=== PATIENT | female | born 1955 | race Caucasian/White ===

== ENCOUNTER 2016-06-04 23:59 | Emergency (ER) | payer OTHER ==
--- NOTE | ~2016-06-04 | CT2 ---
[facility] A Service of [facility] RADIOLOGY TEXT RESULTS PATIENT: SEVERO YOUSIF LOCATION: [facility] : 59 UNIT #: [id number] AGE: [address]: Rojelio Garcia MD SEX: F ORDER DR: [id number] [facility] [address] [place], [place] [address] [id number] MR#: [id number] #: [id number] NAME: SEVERO YOUSIF : 1955 SEX: F STUDY DATE/TIME: 06/05/2016 3:30 UNIT: [facility] ROOM: STUDY DESCRIPTION: CT Abd and Pelv W Cont Attending Physician: Rojelio Garcia M.D. Ordering Physician: Rojelio Garcia M.D. Primary Care Physician: No Primary Care Physician MEDICAL IMAGING REPORT This report is preliminary unless electronic signature is present EXAM Abdomen and pelvis CT with contrast, 06/05/2016. INDICATION Abdominal pain for the past 2 months. Swelling for 2 months, trouble passing bowel movements, bloating. History of hysterectomy. TECHNIQUE Contrast enhanced CT of the abdomen and pelvis was performed. This CT exam was performed with one or more of the following radiation dose reduction techniques: automatic exposure control, adjustment of mA and/or kV according to patient size, and iterative reconstruction. COMPARISON 01/31/[address] ABDOMEN: Included lung bases are clear. There is no effusion or pericardial effusion. Aorta unremarkable. Spleen, adrenal glands, pancreas, and gallbladder unremarkable. Small cyst in the left hepatic lobe unchanged. Kidneys are unremarkable. CT PELVIS: Bladder unremarkable. Uterus surgically absent. No drainable fluid collection in the pelvis. There is intermittent diverticulosis of the colon. There is constipation. No bowel obstruction or focal inflammatory change of the bowel. Appendix normal. Inguinal canals unremarkable. Small reactive-appearing pelvic sidewall node on the left unchanged. Prominent vessels adjacent to the gastric fundus stable. There are degenerative changes in the thoracolumbar spine. IMPRESSION [facility] A Service of [facility] RADIOLOGY TEXT RESULTS PATIENT: SEVERO YOUSIF LOCATION: [facility] : 59 UNIT #: [id number] AGE: [address]: Rojelio Garcia MD SEX: F ORDER DR: 1. Negative contrast-enhanced abdomen and pelvis CT. The appendix is normal. No bowel obstruction, drainable fluid collection, or focal area of inflammatory change. 2. Uterus surgically absent. 3. Intermittent diverticulosis. 4. Not mentioned above, the spleen is enlarged. This was also present on the prior study. Dictated by... Edward Bethea M.D. THIS IS AN ELECTRONICALLY VERIFIED REPORT Edward Bethea M.D. at 06/05/2016 10:12 PM SANJAY/huey TD: 06/05/2016 15:10 JOB #: [id number] MEDICAL IMAGING REPORT Page 1 of 1 COPY
[~2016-06-04 23:59] MED LIST: ALB/IPRATROPIUM/1 E2 INH; ALL DAY ALLERGY10 M2; ALL DAY ALLERGY10 MG PO; AMITRIPTYLINE H50 MG PO; AMITRIPTYLINE100 MG; AMITRIPTYLINE100 MG PO; AMLODIPINE BESYL5 MG PO; ANTIVERT PO; ANUCORT-HC25 MG/SUPP; ANUCORT-HC25 MG/SUPP PR; ANUSOL-HC25 MG/SUPP PR; ASACOL400 MG; ASACOL400 MG PO; ATORVASTATIN CA20 MG PO; AZATHIOPRINE50 M1 PO; BACLOFEN10 MG; BACLOFEN10 MG PO; BENTYL20 MG DOB; CALCIUM CARBON600 M1 PO; CATAFLAM50 MG PO; CELEBREX PO; CETIRIZINE HCL10 MG PO; CIPRO PO; CITALOPRAM HBR40 MG PO; CLINDAMYCIN HC300 MG; COLACE50 MG PO; DITROPAN5 MG PO; DOC-Q-LACE100 MG; DOC-Q-LACE100 MG PO; DOXYCYCLINE HY100 M1 PO; EFFEXOR37.5 MG PO; ERGOCALCIF50000 UNI1 PO; ESTRADIOL0.5 MG PO; EUCERIN CREAM TOP; FLAGYL PO; FLEXERIL10 M1 PO; FLEXERIL10 MG; FLEXERIL10 MG PO; FLONASE 0.05% N16 G1; FLONASE16 GM; FLUTICASONE NASAL; FUROSEMIDE40 MG PO; GABAPENTIN300 M2 PO; GLIPIZIDE5 MG/BOTTL PO; GLYBURIDE2.5 M1 PO; HYDROXYZINE HCL25 M1 PO; INDOMETHACIN50 MG; INDOMETHACIN50 MG PO; KEFLEX500 MG PO; KLONOPIN0.5 MG PO; KLOR-CON PO; LASIX PO; LASIX20 MG; LASIX20 MG PO; LEVSIN; LEVSIN PO; LIALDA1.2 G PO; LIORESAL10 MG PO; LIPITOR PO; LIPITOR20 MG PO; LIPITOR40 MG PO; LISINOPRIL10 MG PO; LOMOTIL TABLET1 TAB PO; LOMOTIL WHITE2.5 MG DOB; LORTAB 7.5-5001 TAB PO; MACROBID100 MG PO; MECLIZINE HCL25 M1 PO; MEDI-MECLIZINE25 M1 PO; METFORMIN HCL500 M1; METFORMIN PO; METOCLOPRAMIDE H5 MG PO; MICRO-K10 MEQ PO; MOBIC15 MG PO; MOTION SICKNESS25 M4; MOTION SICKNESS25 M4 PO; NADOLOL20 MG PO; NAPROXEN375 MG PO; NITROGLYGERIN0.4 MG SL; NIZORAL 2% CREA15 GM EXT; NORTRIPTYLINE H50 MG PO; NOVOLOG; OMEPRAZOLE20 M1 PO; OMEPRAZOLE20 M2 PO; OPTIVE EYE DROPS5 ML OP; PAIN RELIEVER500 M4 PO; PANTOPRAZOLE SO40 MG PO; PAROXETINE HCL40 M1; PAROXETINE HCL40 M1 PO; PAROXETINE HCL40 MG PO; PERCOCET 5-3251 TAB PO; POTASSIUM CHLO10 MEQ; POTASSIUM CHLO10 MEQ DOB; PREDNISONE PO; PREDNISONE10 MG PO; PREDNISONE5 MG PO; PRILOSEC20 M1; PRILOSEC20 M1 PO; PRILOSEC20 MG PO; PRINIVIL10 MG PO; PROAIR HFA8.5 GM; PROAIR HFA8.5 GM IH; PROMETHAZINE HC25 MG PO; PROTONIX PO; ROBITUSSIN COU1 EACH PO; SILVADENE TOP; SPIRIVA18 MCG INH; SYMBICORT 160/4.6 G1 IH; SYMBICORT 16010.2 GM IH; SYMBICORT80 INH; TRAMADOL HCL50 M2; TRAMADOL HCL50 M2 PO; TRIAMCINOLONE A15 G2 EXT; TRIAMTERENE-HCT1 TA6 PO; TRIAMTERENE-HCT1 TA8; VESICARE5 MG PO; VICODIN PO; VITAMIN C PO; VITAMIN D 2 PO; VITAMIN D22000 UNIT; VITAMIN D250000 UNIT PO; VITAMIN D50000 UNIT; XIFAXAN550 MG PO; ZITHROMAX PO; ZOFRAN ODT4 MG PO
[2016-06-05 01:47] LABS: URINE SOURCE CLEAN CATCH
[2016-06-05 01:54] LABS: URINE APPEARANCE CLEAR; URINE BILIRUBIN NEG (NEG); URINE BLOOD NEG (NEG); URINE COLOR DK YELLOW; URINE GLUCOSE >1000 MG/DL (NEG); URINE KETONE NEG (NEG); URINE LEUKOCYTE ESTERASE NEG (NEG); URINE NITRATE NEG (NEG); URINE PROTEIN NEG (NEG); URINE SPECIFIC GRAVITY 1.045 (1.003-1.035)
[2016-06-05 02:00] LABS: BASOPHIL% 0.4 % (0-2.5); EOSINOPHIL# 0.1 X10e3 (0-0.7); EOSINOPHIL% 1.3 % (0.0-7.0); HEMATOCRIT 38.2 % (35.0-45.0); HEMOGLOBIN 12.4 gm/dL (12.0-16.0); LYMPHOCYTE# 0.9 X10e3 (1.0-3.5); LYMPHOCYTE% 21.2 % (17.0-45.0); MEAN CELL VOLUME 85.8 FL (83-96); MEAN CORPUSCULAR HEMOGLOBIN 27.8 PG (28-34); MEAN CORPUSCULAR HGB CONC 32.4 g/dL (30-36); MEAN PLATELET VOLUME 7.9 FL (6.5-11.5); MONOCYTE# 0.5 X10e3 (0-1.0); NEUTROPHIL# 2.6 X10e3 (1.5-7.1); NEUTROPHIL% 65.1 % (40-75); PLATELET COUNT 139 X10e3 (140-420); RED BLOOD COUNT 4.45 X10e (3.90-5.30); RED CELL DISTRIBUTION WIDTH 16.3 % (11.0-15.5)
[2016-06-05 02:01] LABS: DIFF IND NO
[2016-06-05 02:39] LABS: ALBUMIN SERUM 3.7 g/dL (3.5-5.0); BILIRUBIN, DIRECT 0.1 mg/dL (0.0-0.2); BILIRUBIN,INDIRECT 0.2 mg/dL (0.0-0.9); BILIRUBIN,TOTAL 0.3 mg/dL (0.2-2.0); CREATININE SERUM 0.8 mg/dL (0.6-1.4); GLOM FILT RATE Estimated 81.3 mL/min (>60); POTASSIUM 3.9 mmol/L (3.5-5.1); PROTEIN TOTAL SERUM 6.8 g/dL (6.0-8.3)
[2016-08-04] MEDS ORDERED: ASPIRIN EC81 M1 PO (07:38)
[2016-08-04] MEDS ORDERED: LIPITOR40 MG PO (07:38)
[2016-08-04] MEDS ORDERED: ACETAMINOPHEN PO (07:38)
[2016-08-04] MEDS ORDERED: ADVAIR 250-501 EAC1 (07:38)
[2016-08-04] MEDS ORDERED: CYMBALTA30 M1 (07:39)
[2016-08-04] MEDS ORDERED: CARVEDILOL6.25 MG PO (07:39)
[2016-08-04] MEDS ORDERED: COLESTID1 GM PO (07:39)
[2016-08-04] MEDS ORDERED: LISINOPRIL2.5 MG PO (07:40)
== END 2016-06-05 04:35 | disposition home or self-care (01) ==
LOC: CED 23:59
PROVIDERS: Emergency Medicine
DX: K29.70 Gastritis, unspecified, without bleeding (principal); I10 Essential (primary) hypertension; E11.9 Type 2 diabetes mellitus without complications; J44.9 Chronic obstructive pulmonary disease, unspecified; F17.210 Nicotine dependence, cigarettes, uncomplicated
CPT/HCPCS: 36415; 74177; 80048; 80076; 81003; 82150; 83690; 85025; 96372; 99284; J0500; Q9967

== ENCOUNTER → 2016-08-04 | Day surgery (SDC) | payer OTHER ==
[~2016-08-04] MED LIST changes: +ACETAMINOPHEN PO; +ADVAIR 250-501 EAC1; +ASPIRIN EC81 M1 PO; +CARVEDILOL6.25 MG PO; +COLESTID1 GM PO; +CYMBALTA30 M1; +LISINOPRIL2.5 MG PO
--- NOTE | ~2016-08-04 | OR ---
Unit #: [id number] #: [id number] Patient: SEVERO YOUSIF [id number] [address] [address] [id number] MR#: [id number] NAME: SEVERO YOUSIF. ROOM: Date of Procedure: 08/04/2016 Admission Date: 08/04/2016 Surgeon: Amilcar Maya M.D. : 1955 Attending Physician: Amilcar Maya M.D. OPERATIVE REPORT PROCEDURE PERFORMED Esophagogastroduodenoscopy with biopsies. INDICATIONS FOR PROCEDURE The patient with dysphagia and epigastric pain, undergoing evaluation with upper endoscopy. MEDICATIONS Monitored anesthesia. POSTOPERATIVE FINDINGS 1. Significant gastric varices right around the cardia. 2. Nodular gastritis, possible GAVE antral region, biopsies taken. 3. Normal duodenum and distal duodenum. PLAN Continue PPI therapy and nadolol. DESCRIPTION OF PROCEDURE The patient was explained of the procedure, risks, and benefits along with the risks and benefits of anesthesia. She was brought to the endoscopy room. Propofol anesthesia was given. Bite block was placed. The scope was passed down the mouth into the esophagus, stomach, duodenum, and distal duodenum. Findings as described. Biopsies taken. Gently, I pulled the scope out of the patient's mouth. She tolerated it well. Dictated by... Juaquin Tomlin/adelso TD: 08/05/2016 01:21 JOB #: [id number] Unit #: [id number] #: [id number] Patient: SEVERO YOUSIF OPERATIVE REPORT Page 1 of 1 X Amilcar Maya MD PROCEDURE OPERATIVE NOTE
== END | disposition home or self-care (01) ==
LOC: COPS 05:59
DX: K29.50 Unspecified chronic gastritis without bleeding (principal); I86.4 Gastric varices; J44.9 Chronic obstructive pulmonary disease, unspecified; E11.9 Type 2 diabetes mellitus without complications; I10 Essential (primary) hypertension; F17.210 Nicotine dependence, cigarettes, uncomplicated; Z88.0 Allergy status to penicillin; Z88.2 Allergy status to sulfonamides; Z88.8 Allergy status to other drugs, medicaments and biological substances; Z91.048 Other nonmedicinal substance allergy status; Z79.4 Long term (current) use of insulin; Z79.51 Long term (current) use of inhaled steroids; Z79.52 Long term (current) use of systemic steroids; Z79.899 Other long term (current) drug therapy; Z90.710 Acquired absence of both cervix and uterus; Z98.890 Other specified postprocedural states
CPT/HCPCS: 82947; 88305; 88312